=== PATIENT | female | born 1930 | race Caucasian/White ===

== ENCOUNTER 2016-10-03 19:52 | Emergency (ER) | payer OTHER, MEDICARE ==
[~2016-10-03] VITALS: Ht 162.6 cm; Wt 77.1 kg
[2016-10-03] MEDS ORDERED: INDAPAMIDE1.25 MG PO (20:01)
[2016-10-03] MEDS ORDERED: METOPROLOL SUCC50 MG PO (20:01)
[2016-10-03] MEDS ORDERED: KLOR-CON M1010 MEQ PO (20:01)
[2016-10-03] MEDS ORDERED: PRAVASTATIN SOD80 MG PO (20:01)
[2016-10-03] MEDS ORDERED: VICTOZA0.6 MG/0.1 SUBQ (20:02)
[2016-10-03] MEDS ORDERED: PRAZOSIN HCL5 MG PO (20:03)
[2016-10-03] MEDS ORDERED: DICLOFENAC SODI75 MG PO (20:03)
[2016-10-03 21:30] VITALS: BP 146/66
== END 2016-10-03 21:32 | disposition home or self-care (01) ==
LOC: ER 19:52
DX: S01.01XA Laceration without foreign body of scalp, initial encounter (principal); I10 Essential (primary) hypertension; E11.9 Type 2 diabetes mellitus without complications; H35.30 Unspecified macular degeneration; W07.XXXA Fall from chair, initial encounter; Y93.89 Activity, other specified; Y92.89 Other specified places as the place of occurrence of the external cause; Y99.9 Unspecified external cause status

== ENCOUNTER 2018-04-29 18:00 | Emergency (ER) | payer OTHER, MEDICARE ==
[~2018-04-29] VITALS: Ht 162.6 cm; Wt 73.9 kg
[~2018-04-29 18:00] MED LIST: DICLOFENAC SODI75 MG PO; INDAPAMIDE1.25 MG PO; KLOR-CON M1010 MEQ PO; METOPROLOL SUCC50 MG PO; PRAVASTATIN SOD80 MG PO; PRAZOSIN HCL5 MG PO; VICTOZA0.6 MG/0.1 SUBQ
[2018-04-29] MEDS ORDERED: MULTIPLE VITAM1 EAC2 PO (18:07)
[2018-04-29] MEDS ORDERED: ASPIR 8181 MG PO (18:07)
[2018-04-29] MEDS ORDERED: VITAMIN D2000 UNIT PO (18:07)
== END 2018-04-29 19:44 | disposition home or self-care (01) ==
LOC: ER 18:00
DX: S61.412A Laceration without foreign body of left hand, initial encounter (principal); S00.33XA Contusion of nose, initial encounter; S00.83XA Contusion of other part of head, initial encounter; I10 Essential (primary) hypertension; E11.9 Type 2 diabetes mellitus without complications; H35.30 Unspecified macular degeneration; W01.198A Fall on same level from slipping, tripping and stumbling with subsequent striking against other object, initial encounter; Y92.89 Other specified places as the place of occurrence of the external cause; Y93.89 Activity, other specified; Y99.8 Other external cause status

== ENCOUNTER → 2019-09-03 | Outpatient (CLI) | payer OTHER, MEDICARE ==
[~2019-09-03] MED LIST changes: +ASPIR 8181 MG PO; +MULTIPLE VITAM1 EAC2 PO; +VITAMIN D2000 UNIT PO
== END ==
LOC: ULTRA 14:25
DX: E04.2 Nontoxic multinodular goiter (principal)

== ENCOUNTER → 2020-03-17 | Outpatient (CLI) | payer OTHER, MEDICARE | LOC: ULTRA 09:27 | PROVIDERS: ATTEND Internal Medicine | DX: E04.2 Nontoxic multinodular goiter (principal) ==